=== PATIENT | male | born 1965 | race Two or more races ===

== ENCOUNTER → 2021-12-23 | Outpatient (CLI) | payer OTHER ==
[~2021-12-23] MED LIST: ATOR40TA75; CETI-24; CHLO125TA; CLOB0.0526 TOP; IBUP-1022 PO; LEVAINH INH; MULTTAB61 PO; OMEGCAP9 PO; PSEU30TA21 PO; TURM500C PO; VITA100093 PO; VITA100T59 PO
== END ==
LOC: M EKG 17:06
PROVIDERS: ATTEND Anesthesiology
DX: Z01.818 Encounter for other preprocedural examination (principal); R03.0 Elevated blood-pressure reading, without diagnosis of hypertension; E78.00 Pure hypercholesterolemia, unspecified; I49.3 Ventricular premature depolarization

== ENCOUNTER 2021-12-30 10:33 | Day surgery (SDC) | payer OTHER ==
[~2021-12-30] VITALS: Ht 172.7 cm; Wt 89.4 kg
[~2021-12-30 10:33] MED LIST changes: +ceFAZolin SOD 2 GM in IV 1 EA IV ONE
[2021-12-30] MEDS ORDERED: BUPIVACAINE LIPOSOME/PF 1.3% 20ML VIAL (13.3MG/ML)(EXPAREL) As Ordered ONE (12:20)
[2021-12-30] MEDS ORDERED: BUPIVACAINE/EPIN 0.25% 30 ML VIAL As Ordered ONE (12:20)
[2021-12-30] MEDS ORDERED: BUPIVACAINE HCL 0.25% 10ML VIAL As Ordered ONE (12:20)
[2021-12-30] MEDS ORDERED: MIDAZOLAM INJ 2MG/2ML VIAL (J2250 PER 1MG) As Ordered ONE (12:52)
[2021-12-30] MEDS ORDERED: propofoL 200 MG/20 ML VIAL As Ordered ONE (12:52)
[2021-12-30] MEDS ORDERED: ROCURONIUM BROMIDE 50 MG/5 ML VIAL As Ordered ONE ×2 (12:52→12:53)
[2021-12-30] MEDS ORDERED: fentaNYL 100 MCG/2 ML INJECTION As Ordered ONE ×2 (12:52→12:54)
[2021-12-30] MEDS ORDERED: ACETAMINOPHEN 1000MG 100ML IV BTL (OFIRMEV) (J0131 PER 10MG) As Ordered ONE (13:05)
[2021-12-30] MEDS ORDERED: dexameTHASONE 4 MG/ML 1ML VIAL (J1100 PER 1MG) As Ordered ONE (13:05)
[2021-12-30] MEDS ORDERED: ONDANSETRON 4MG 2ML VIAL As Ordered ONE (13:05)
[2021-12-30] MEDS ORDERED: SUGAMMADEX SODIUM 500 MG/5 ML VIAL (BRIDION) As Ordered ONE (13:06)
[2021-12-30] MEDS ORDERED: KETOROLAC 60MG 2ML VIAL As Ordered ONE (13:21)
[2021-12-30] MEDS ORDERED: oxyCODONE 5MG TAB PO PRN (13:35)
[2021-12-30] MEDS ORDERED: ONDANSETRON 4MG 2ML VIAL IV PRN (13:35)
[2021-12-30] MEDS ORDERED: LR 1,000 ML IV SCH (13:35)
[2021-12-30] MEDS ORDERED: fentaNYL 100 MCG/2 ML INJECTION IV PRN (13:35)
[2021-12-30] MEDS ORDERED: MORPHINE 2 MG/ML 1ML VIAL IV PRN (13:35)
[2021-12-30 14:24] VITALS: BP 123/83
[2021-12-30] MEDS ORDERED: NS 1,000 ML IV SCH (14:35)
[2021-12-30] MEDS ORDERED: traMADol 50 MG TAB PO PRN (14:35)
== END 2021-12-30 15:48 | disposition home or self-care (01) ==
LOC: M SDC 10:33
PROVIDERS: ATTEND Surgery
DX: K42.9 Umbilical hernia without obstruction or gangrene (principal); I10 Essential (primary) hypertension; E78.5 Hyperlipidemia, unspecified; L30.9 Dermatitis, unspecified; J45.909 Unspecified asthma, uncomplicated; G47.33 Obstructive sleep apnea (adult) (pediatric); Z79.899 Other long term (current) drug therapy
CPT/HCPCS: 49585; 88302; C1781; C9290; J0131; J0690; J1100; J1885; J2250; J2405; J3010

== ENCOUNTER → 2022-04-03 | Outpatient (CLI) | payer OTHER ==
[~2022-04-03] MED LIST changes: -ceFAZolin SOD 2 GM in IV 1 EA IV ONE
== END ==
LOC: M PLALAB 11:47
PROVIDERS: ATTEND Physician Assistant
DX: R97.20 Elevated prostate specific antigen [PSA] (principal)

== ENCOUNTER → 2022-04-21 | Outpatient (REF) | payer OTHER | LOC: M SMT 13:06 | PROVIDERS: ATTEND Urology | DX: R97.20 Elevated prostate specific antigen [PSA] (principal) ==

== ENCOUNTER → 2022-11-05 | Outpatient (REF) | payer OTHER ==
[2022-11-09 23:07] LABS: PSA % FREE 14.1 % (.); PSA FREE 1.33 ng/mL; PSA TOTAL 9.4 ng/mL (0.0-4.0)
== END ==
LOC: M SMT 17:16
PROVIDERS: ATTEND Urology
DX: R97.20 Elevated prostate specific antigen [PSA] (principal)

== ENCOUNTER → 2023-05-12 | Outpatient (CLI) | payer OTHER | LOC: M WHC 14:37 | PROVIDERS: ATTEND Family Medicine | DX: M85.9 Disorder of bone density and structure, unspecified (principal) ==

== ENCOUNTER → 2023-07-09 | Outpatient (CLI) | payer OTHER | LOC: M PLALAB 16:40 | PROVIDERS: ATTEND Urology | DX: R97.20 Elevated prostate specific antigen [PSA] (principal) ==

== ENCOUNTER 2023-11-18 08:43 | Day surgery (SDC) | payer OTHER ==
[~2023-11-18] VITALS: Ht 172.7 cm; Wt 94.0 kg
[~2023-11-18 08:43] MED LIST changes: +AMLO1TAB24 PO; -ATOR40TA75; +ATOR40TA75 PO; -CETI-24; +CETI-24 PO; -CHLO125TA; +CHLO125TA PO; +DIPH-429 PO; +LOSA100T46 PO; +NS 1,000 ML IV ONE; +TAMS1CAP17 PO
[2023-11-18] MEDS ORDERED: propofoL 200 MG/20 ML VIAL As Ordered ONE (10:34)
[2023-11-18 10:38] VITALS: TEMP 97.7
[2023-11-18 10:50] VITALS: BP 125/79; O2SAT 99
== END 2023-11-18 10:56 | disposition home or self-care (01) ==
LOC: M OPP 08:43
PROVIDERS: ATTEND Surgery
DX: Z12.11 Encounter for screening for malignant neoplasm of colon (principal); I10 Essential (primary) hypertension; G47.30 Sleep apnea, unspecified; Z99.89 Dependence on other enabling machines and devices; Z79.02 Long term (current) use of antithrombotics/antiplatelets; Z79.51 Long term (current) use of inhaled steroids; Z79.52 Long term (current) use of systemic steroids; Z79.899 Other long term (current) drug therapy

== ENCOUNTER → 2024-01-12 | Outpatient (CLI) | payer OTHER ==
[~2024-01-12] MED LIST changes: -NS 1,000 ML IV ONE
== END ==
LOC: M PLALAB 16:44
PROVIDERS: ATTEND Urology
DX: R97.20 Elevated prostate specific antigen [PSA] (principal)

== ENCOUNTER → 2024-05-11 | Outpatient (CLI) | payer OTHER ==
[~2024-05-11] MED LIST changes: +LEVA15HF2 INH; -LEVAINH INH
== END ==
LOC: M PLALAB 16:30
PROVIDERS: ATTEND Urology
DX: R97.20 Elevated prostate specific antigen [PSA] (principal)

== ENCOUNTER → 2024-06-28 | Outpatient (CLI) | payer OTHER ==
[~2024-06-28] MED LIST changes: +PROHANCE 279.3MG/ML 15ML VIAL ONE; +PROHANCE 279.3MG/ML 5ML VIAL ONE
== END ==
LOC: M PLAIMG 08:36
PROVIDERS: ATTEND Urology
DX: R97.20 Elevated prostate specific antigen [PSA] (principal)
CPT/HCPCS: 72197; A9576

== ENCOUNTER → 2024-07-05 | Outpatient (CLI) | payer OTHER ==
[~2024-07-05] MED LIST changes: -PROHANCE 279.3MG/ML 15ML VIAL ONE; -PROHANCE 279.3MG/ML 5ML VIAL ONE
== END ==
LOC: M PLALAB 16:29
PROVIDERS: ATTEND Urology
DX: R97.20 Elevated prostate specific antigen [PSA] (principal)

== ENCOUNTER 2024-07-30 20:52 | Emergency (ER) | payer OTHER ==
[~2024-07-30] VITALS: Ht 172.7 cm; Wt 94.1 kg
[2024-07-30 21:21] LABS: BASO # 0.1 10^3/uL (0.0-0.2); BASO % 0.6 % (0.0-1.0); EOS # 0.2 10^3/uL (0.0-0.5); EOS % 1.9 % (0.0-3.0); HEMATOCRIT 40.6 % (42.0-52.0); HEMOGLOBIN 13.9 g/dl (13.5-17.5); LYMPH # 2.2 10^3/uL (1.5-5.0); LYMPH % 19.7 % (24.0-44.0); MEAN CORPUSCULAR HEMOGLOBIN 29.3 pg (27.0-33.0); MEAN CORPUSCULAR HGB CONC 34.2 g/dl (32.0-36.5); MEAN CORPUSCULAR VOLUME 85.5 fl (80.0-96.0); MONO # 0.6 10^3/uL (0.0-0.8); MONO % 5.4 % (2.0-8.0); NEUTROPHILS # 7.9 10^3/uL (1.5-8.5); NEUTROPHILS % 72.1 % (36.0-66.0); PLATELET COUNT, AUTOMATED 261 10^3/uL (150-450); RED BLOOD COUNT 4.75 10^6/uL (4.30-6.10)
[2024-07-30] MEDS: ONDANSETRON 4MG 2ML VIAL IV ONE (21:44)
[2024-07-30 21:53] LABS: CK-MB VALUE MASS 3.8 NG/ML (<3.6)
[2024-07-30 21:55] LABS: BLOOD UREA NITROGEN 17 MG/DL (9-23); CALCIUM LEVEL 9.5 MG/DL (8.3-10.6); CARBON DIOXIDE LEVEL 28 MMOL/L (20-31); CHLORIDE LEVEL 109 MMOL/L (98-107); CREATININE FOR GFR 0.84 MG/DL (0.70-1.30); GLOMERULAR FILTRATION RATE > 60.0 (>49); GLUCOSE, FASTING 107 MG/DL (74-106); POTASSIUM SERUM 3.6 MMOL/L (3.5-5.1); SODIUM LEVEL 144 MMOL/L (136-145)
[2024-07-30 21:56] LABS: CPK CREATINE PHOSPHOKINASE 252 U/L (46-171)
[2024-07-30] MEDS ORDERED: ISOVUE-370 76% 100ML VIAL As Ordered ONE (22:11)
[2024-07-30 22:17] LABS: LIPASE 33 U/L (12-53)
[2024-07-30 22:19] LABS: ALBUMIN 4.1 G/DL (3.2-5.2); ALKALINE PHOSPHATASE 109 U/L (40-129); ALT/SGPT 55 U/L (7.0-40); AST/SGOT 30 U/L (<34); BILIRUBIN,DIRECT 0.2 MG/DL (<0.4); BILIRUBIN,TOTAL 0.5 MG/DL (0.3-1.2); TOTAL PROTEIN 7.1 G/DL (5.7-8.2)
[2024-07-30 22:44] LABS: CK-MB VALUE MASS 3.6 NG/ML (<3.6)
[2024-07-30 22:46] LABS: MB/CK RELATIVE INDEX 1.49 (< OR =4)
[2024-07-30] MEDS ORDERED: ONDA-282 PO (23:11)
[2024-07-30 23:27] VITALS: BP 113/66; TEMP 97.8; O2SAT 97
== END 2024-07-30 23:30 | disposition home or self-care (01) ==
LOC: M ED 20:52 → EDBD 20:52 → M ED 23:30
DX: K52.9 Noninfective gastroenteritis and colitis, unspecified (principal); K57.30 Diverticulosis of large intestine without perforation or abscess without bleeding; N40.0 Benign prostatic hyperplasia without lower urinary tract symptoms; I10 Essential (primary) hypertension; M19.90 Unspecified osteoarthritis, unspecified site; E78.5 Hyperlipidemia, unspecified; F10.10 Alcohol abuse, uncomplicated; Z79.02 Long term (current) use of antithrombotics/antiplatelets; Z79.83 Long term (current) use of bisphosphonates; Z79.899 Other long term (current) drug therapy
CPT/HCPCS: 71045; 71275; 74177; 80048; 80076; 82550; 82553; 83690; 84484; 85025; 93005; 93041; 94760; 96374; 99285; J2405; Q9967

== ENCOUNTER → 2025-01-19 | Outpatient (CLI) | payer OTHER ==
[~2025-01-19] MED LIST changes: +ONDA-282 PO
== END ==
LOC: M PLALAB 16:46
PROVIDERS: ATTEND Urology
DX: R97.20 Elevated prostate specific antigen [PSA] (principal)